=== PATIENT | female | born 1975 | race Caucasian/White ===

== ENCOUNTER 2021-04-05 20:42 | Emergency (ER) | payer BC ==
--- NOTE | 2021-04-05 22:03 | EDM.PDOC ---
ED HPI GENERAL MEDICAL PROBLEM - General Chief Complaint: Lower Extremity Injury/Pain Stated Complaint: R FOOT PAIN Time Seen by Provider: 04/05/21 20:53 Source of Information: Reports: Patient History Limitations: Reports: No Limitations - History of Present Illness INITIAL COMMENTS - FREE TEXT/NARRATIVE: Patient comes to ER after turning her right foot inward while stepping down on a stair. She did not fall. No LOC, no complaints of vertigo, syncope or near syncope. Has pain to the outside of her foot. States she has normal neurovascular status. No other complaints. Onset: Today Duration: Intermittent Location: Reports: Lower Extremity, Right Quality: Reports: Sharp Severity: Mild Worsens with: Reports: Movement Associated Symptoms: Reports: No Other Symptoms Review of Systems - Review of Systems Review Of Systems: See Below Constitutional: Reports: No Symptoms Eyes: Reports: No Symptoms Ears: Reports: No Symptoms Nose: Reports: No Symptoms Mouth/Throat: Reports: No Symptoms Respiratory: Reports: No Symptoms Cardiovascular: Reports: No Symptoms GI/Abdominal: Reports: No Symptoms Genitourinary: Reports: No Symptoms Musculoskeletal: Reports: No Symptoms Skin: Reports: No Symptoms Neurological: Reports: No Symptoms Psychiatric: Reports: No Symptoms ED EXAM, GENERAL - Physical Exam Exam: See Below Exam Limited By: No Limitations General Appearance: Alert, WD/WN, No Apparent Distress Head: Atraumatic, Normocephalic Neck: Normal Inspection, Supple, Non-Tender, Full Range of Motion Peripheral Pulses: 2+: Posterior Tibial (L), Posterior Tibial (R), Dorsalis Pedis (L), Dorsalis Pedis (R) Extremities: Normal Inspection, Normal Range of Motion, No Pedal Edema, Normal Capillary Refill, Other (pain to palpation of the lateral aspect of the right mid foot) Course - Orders/Labs/Meds Orders: Active Orders 24 hr Category Date Time Status Foot Comp Min 3V Rt [CR] Stat Exams 04/05/21 20:53 Ordered Departure - Departure Time of Disposition: 10:30 Disposition: Home, Self-Care 01 Condition: Good Clinical Impression: Sprain of foot, right - Discharge Information *PRESCRIPTION DRUG MONITORING PROGRAM REVIEWED*: Not Applicable *COPY OF PRESCRIPTION DRUG MONITORING REPORT IN PATIENT JUAN: Not Applicable Instructions: Muscle Strain, Lumy-sc-[id number] Referrals: Elidia Dixon MD [Primary Care Provider] - Additional Instructions: 1. No acute fracture identified 2. Alternate ibuprofen and tylenol products for pain and swelling 3. Apply ice, rest, and elevate the foot 4. Follow up with PCP if pain does not improve in the next 5-7 days 5. Please call with any questions or concerns - Problem List & Annotations (1) Sprain of foot, right SNOMED Code(s): 97121861 Code(s): S93.601A - UNSPECIFIED SPRAIN OF RIGHT FOOT, INITIAL ENCOUNTER Status: Acute Current Visit: Yes Qualifiers: Encounter type: initial encounter Qualified Code(s): S93.601A - Unspecified sprain of right foot, initial encounter - Problem List Review Problem List Initiated/Reviewed/Updated: Yes - My Orders Last 24 Hours: My Active Orders 04/05/21 20:53 Foot Comp Min 3V Rt [CR] Stat - Assessment/Plan Last 24 Hours: My Active Orders 04/05/21 20:53 Foot Comp Min 3V Rt [CR] Stat Assessment:: sprain of right foot Plan: 1. No acute fracture identified 2. Alternate ibuprofen and tylenol products for pain and swelling 3. Apply ice, rest, and elevate the foot 4. Follow up with PCP if pain does not improve in the next 5-7 days 5. Please call with any questions or concerns
--- NOTE | 2021-04-06 10:18 | CR ---
[id number] RAD/RAD Foot Right 3V Min Exam: RAD Foot Right 3V Min Indication:ANKLE TWISTED Comparison: No prior imaging for comparison. Discussion/Impression: No acute fracture or dislocation. No AVN or erosive changes. Plantar calcaneal spur. 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 This is possibly degenerative. Bryan Courtney MD 04/06/21 1017 Thank you for allowing us to participate in the care of your patient.
== END 2021-04-05 22:30 | disposition home or self-care (01) ==
LOC: VM.ED 20:42
DX: S93.601A Unspecified sprain of right foot, initial encounter (principal); W10.9XXA Fall (on) (from) unspecified stairs and steps, initial encounter
CPT/HCPCS: 73630-RT; 99283

== ENCOUNTER 2024-12-07 11:14 | Day surgery (SDC) | payer BC ==
[2024-12-07] MEDS: Lactated Ringers 1,000 ML IV SCH (11:30)
[2024-12-07] MEDS ORDERED: Propofol 200 MG/20 ML SDV ONE ×6 (13:02→15:28)
[2024-12-07] MEDS ORDERED: fentaNYL 100 MCG/2 ML SDV ONE (13:02)
== END 2024-12-07 15:57 | disposition home or self-care (01) ==
LOC: VM.SDS 11:14
PROVIDERS: ATTEND Family Medicine
DX: Z12.11 Encounter for screening for malignant neoplasm of colon (principal); R19.5 Other fecal abnormalities; D12.6 Benign neoplasm of colon, unspecified; K57.30 Diverticulosis of large intestine without perforation or abscess without bleeding; E78.00 Pure hypercholesterolemia, unspecified; E66.813 Obesity, class 3; Z68.42 Body mass index [BMI] 45.0-49.9, adult
CPT/HCPCS: 00811; J2704; J3010; J7120